=== PATIENT | female | born 1960 | race Caucasian/White ===

== ENCOUNTER 2017-02-10 06:55 | Emergency (ER) | payer BC ==
[~2017-02-10] VITALS: Ht 157.5 cm; Wt 68.2 kg
[2017-02-10 07:00] VITALS: BP 142/88
[2017-02-10] MEDS ORDERED: CHLO25TA PO (07:11)
[2017-02-10] MEDS ORDERED: VITATAB11 PO (07:11)
[2017-02-10] MEDS ORDERED: ASPI1TAB PO (07:11)
[2017-02-10] MEDS ORDERED: MODA200T15 PO (07:11)
[2017-02-10] MEDS ORDERED: BUPR150T3 PO (07:11)
[2017-02-10] MEDS ORDERED: REFR0.5D8 OU (07:11)
[2017-02-10] MEDS ORDERED: DILT240C77 PO (07:11)
[2017-02-10] MEDS ORDERED: VITA200016 PO (07:11)
[2017-02-10] MEDS ORDERED: [UNRECOGNIZED DRUG - OTHER] PO (07:11)
[2017-02-10] MEDS ORDERED: CHOLCAP PO (07:11)
[2017-02-10] MEDS ORDERED: MULT1TAB8 PO (07:11)
[2017-02-10] MEDS ORDERED: IBUP-1022 PO (07:11)
[2017-02-10] MEDS ORDERED: K-TA10TA2 PO (07:11)
[2017-02-10] MEDS ORDERED: LIDOCAINE W/EPINEPHRINE 1% 20ML VIAL As Ordered ONE (07:25)
[2017-02-10] MEDS ORDERED: LIDOCAINE W/EPINEPHRINE 1% 20ML VIAL SC ONE (07:30)
== END 2017-02-10 10:02 | disposition home or self-care (01) ==
LOC: M ED 06:55
DX: K91.840 Postprocedural hemorrhage of a digestive system organ or structure following a digestive system procedure (principal); I10 Essential (primary) hypertension; Z87.891 Personal history of nicotine dependence; Z79.82 Long term (current) use of aspirin; Z79.899 Other long term (current) drug therapy

== ENCOUNTER → 2017-03-05 | Outpatient (REF) | payer BC ==
[~2017-03-05] MED LIST: ASPI1TAB PO; BUPR150T3 PO; CHLO25TA PO; CHOLCAP PO; DILT240C77 PO; IBUP-1022 PO; K-TA10TA2 PO; MODA200T15 PO; MULT1TAB8 PO; REFR0.5D8 OU; VITA200016 PO; VITATAB11 PO; [UNRECOGNIZED DRUG - OTHER] PO
== END ==
LOC: M SFHCWAGY 13:06
PROVIDERS: ATTEND Nurse Practitioner Women's Health
DX: Z12.4 Encounter for screening for malignant neoplasm of cervix (principal)

== ENCOUNTER → 2017-03-05 | Outpatient (CLI) | payer BC ==
--- NOTE | 2017-03-05 15:52 | REPMRS ---
Patient History The patient states she had a clinical breast exam in 03/14 Patient is postmenopausal. Family history of colorectal cancer in father at age 60, breast cancer in maternal aunt under age 50, breast cancer in maternal cousin at age 49, and breast cancer in maternal cousin at age 45. Digital Woman Screen Mammo: March 05, 2017 - Exam #: [id number] Bilateral CC and MLO view(s) were taken. Technologist: Genesis Gomez, Technologist Prior study comparison: February 03, 2016, digital woman screen mammo performed at [facility]. January 28, 2015, digital mammo diagnostic bilateral, performed at [facility]. FINDINGS: There are scattered fibroglandular densities. There has been no change in the appearance of the mammogram from the prior studies. There is a mild amount of residual fibroglandular tissue which is fairly symmetric. There is no interval development of dominant mass, architectural distortion, or clustered microcalcification suggestive of malignancy. ASSESSMENT: BI-RADS/ACR category 1 mammogram. Negative. Recommendation Routine screening mammogram in 1 year (for women over age 40). This mammogram was interpreted with the aid of an FDA-approved computer-aided dectection system. Electronically Signed By: Darius Vinson MD 03/05/17 [id number]
== END ==
LOC: M WHC 13:03
PROVIDERS: ATTEND Nurse Practitioner Women's Health
DX: Z12.31 Encounter for screening mammogram for malignant neoplasm of breast (principal); Z80.3 Family history of malignant neoplasm of breast; Z78.0 Asymptomatic menopausal state

== ENCOUNTER → 2017-08-12 | Outpatient (CLI) | payer BC | LOC: M SLEEP HO 14:11 | DX: G47.30 Sleep apnea, unspecified (principal); R40.0 Somnolence | CPT/HCPCS: G0399 ==

== ENCOUNTER → 2018-07-23 | Outpatient (CLI) | payer OTHER ==
--- NOTE | 2018-07-23 14:58 | REPMRS ---
Patient History The patient states she had a clinical breast exam in 06/2018. Patient is postmenopausal. Family history of breast cancer under age 50 in maternal aunt, breast cancer at age 49 in maternal cousin, breast cancer at age 45 in maternal cousin, colorectal cancer at age 60 in father. No Hormone Replacement Therapy Digital Woman Screen Mammo: July 23, 2018 - Exam #: [id number] Bilateral CC and MLO view(s) were taken. Technologist: Juana Pineda, Technologist Prior study comparison: March 05, 2017, digital woman screen mammo performed at [facility]. February 03, 2016, digital woman screen mammo performed at [facility]. January 28, 2015, digital mammo diagnostic bilateral, performed at [facility]. FINDINGS: There are scattered fibroglandular densities. There has been no change in the appearance of the mammogram from the prior studies. There is a mild amount of scattered fibroglandular density which is fairly symmetric. There is no interval development of dominant mass, architectural distortion, or clustered microcalcification suggestive of malignancy. Assessment: BI-RADS/ACR category 1 mammogram. Negative. Recommendation Routine screening mammogram of both breasts in 1 year (for women over age 40). This patient's Lifetime Breast Cancer RIsk is estimated at 11.8 %. This mammogram was interpreted with the aid of an FDA-approved computer-aided dectection system. Electronically Signed By: Stewart Rashid MD 07/23/18 [id number]
== END ==
LOC: M WHC 13:23
PROVIDERS: ATTEND Nurse Practitioner Family
DX: Z12.31 Encounter for screening mammogram for malignant neoplasm of breast (principal); Z80.3 Family history of malignant neoplasm of breast; Z80.0 Family history of malignant neoplasm of digestive organs
CPT/HCPCS: 77067; 82270; G0463

== ENCOUNTER → 2019-09-17 | Outpatient (REF) | payer OTHER ==
[~2019-09-17] MED LIST changes: -ASPI1TAB PO; +ASPI81TA26 PO; +DILT1CAP6 PO; -DILT240C77 PO
== END ==
LOC: M PLALAB 13:25
PROVIDERS: ATTEND Nurse Practitioner Women's Health
DX: Z12.4 Encounter for screening for malignant neoplasm of cervix (principal)

== ENCOUNTER → 2019-09-22 | Outpatient (REF) | payer OTHER | LOC: M SFHCWAGY 17:11 | PROVIDERS: ATTEND Nurse Practitioner Women's Health | DX: Z12.4 Encounter for screening for malignant neoplasm of cervix (principal); Z12.31 Encounter for screening mammogram for malignant neoplasm of breast; Z80.0 Family history of malignant neoplasm of digestive organs | CPT/HCPCS: 77063; 77067; 87624; G0123; G0463 ==

== ENCOUNTER → 2019-09-22 | Outpatient (CLI) | payer OTHER ==
--- NOTE | 2019-09-22 17:12 | REPMRS ---
Patient History The patient states she had a clinical breast exam in 2019. Family history of breast cancer under age 50 in maternal aunt, breast cancer at age 49 in maternal cousin, breast cancer at age 45 in maternal cousin, colorectal cancer at age 60 in father. No Hormone Replacement Therapy Digital Woman Screen Mammo: September 22, 2019 - Exam #: [id number] Bilateral CC and MLO view(s) were taken. Technologist: Jennifer Olson, Technologist Prior study comparison: July 23, 2018, bilateral digital woman screen mammo performed at [facility]. March 05, 2017, digital woman screen mammo performed at [facility]. February 03, 2016, digital woman screen mammo performed at [facility]. FINDINGS: There are scattered fibroglandular densities. There is a moderate amount of residual fibroglandular tissue which is fairly symmetric. There is no interval development of dominant mass, architectural distortion, or grouped microcalcification typical of malignancy. There has been no change in the appearance of the mammogram from the prior studies. 3-D tomosynthesis shows no additional findings. Assessment: BI-RADS/ACR category 1 mammogram. Negative Mammogram. Recommendation Routine screening mammogram of both breasts in 1 year (for women over age 40). This patient's Lifetime Breast Cancer RIsk is estimated at 11.4 %. This mammogram was interpreted with the aid of an FDA-approved computer-aided dectection system. Electronically Signed By: Stewart Rashid MD 09/22/19 [id number]
== END ==
LOC: M WHC 14:53
PROVIDERS: ATTEND Nurse Practitioner Women's Health
DX: Z12.31 Encounter for screening mammogram for malignant neoplasm of breast (principal); Z80.0 Family history of malignant neoplasm of digestive organs

== ENCOUNTER → 2020-09-23 | Outpatient (CLI) | payer OTHER ==
[~2020-09-23] MED LIST changes: +BUPR150T12 PO; -BUPR150T3 PO
--- NOTE | 2020-09-23 16:41 | REPMRS ---
Patient History The patient states she had a clinical breast exam in August 2020. Family history of breast cancer under age 50 in maternal aunt, breast cancer at age 49 in maternal cousin, breast cancer at age 45 in maternal cousin, colorectal cancer at age 60 in father. No Hormone Replacement Therapy Digital Woman Screen Mammo: September 23, 2020 - Exam #: [id number] Bilateral CC and MLO view(s) were taken. Technologist: Amy Sanchez, Technologist Prior study comparison: September 22, 2019, bilateral digital woman screen mammo performed at [facility]. July 23, 2018, bilateral digital woman screen mammo performed at [facility]. March 05, 2017, digital woman screen mammo performed at [facility]. FINDINGS: There are scattered fibroglandular densities. The Volpara volumetric breast density category is:B. There has been no change in the appearance of the mammogram from the prior studies. There is a mild amount of scattered fibroglandular density which is fairly symmetric. There is no interval development of dominant mass, architectural distortion, or grouped microcalcification suggestive of malignancy. 3-D tomosynthesis shows no additional findings. Assessment: BI-RADS/ACR category 1 mammogram. Negative Mammogram. Recommendation Routine screening mammogram of both breasts in 1 year (for women over age 40). This patient's [facility] Lifetime Breast Cancer Risk is estimated at 11.0 %. This mammogram was interpreted with the aid of an FDA-approved computer-aided dectection system. Electronically Signed By: Stewart Rashid MD 09/23/20 [id number]
== END ==
LOC: M WHC 15:01
PROVIDERS: ATTEND Nurse Practitioner Women's Health
DX: Z12.31 Encounter for screening mammogram for malignant neoplasm of breast (principal); Z80.0 Family history of malignant neoplasm of digestive organs
CPT/HCPCS: 77063; 77067; G0463

== ENCOUNTER → 2023-01-03 | Outpatient (REF) | payer MEDICARE, OTHER ==
[~2023-01-03] MED LIST changes: -DILT1CAP6 PO; +DILT240C42 PO
== END ==
LOC: M SFHCWAGY 17:44
PROVIDERS: ATTEND Nurse Practitioner Family
DX: Z12.4 Encounter for screening for malignant neoplasm of cervix (principal)
CPT/HCPCS: 87624; G0123

== ENCOUNTER → 2024-09-01 | Outpatient (REF) | payer MEDICARE, OTHER ==
[~2024-09-01] MED LIST changes: -K-TA10TA2 PO; +POTA-165 PO
== END ==
LOC: M LAB REF 13:11
PROVIDERS: ATTEND Family Medicine
DX: R74.8 Abnormal levels of other serum enzymes (principal)